=== PATIENT | male | born 1960 | race Caucasian/White ===

== ENCOUNTER 2019-03-21 10:06 | Inpatient (IN) | payer MEDICARE, MEDICAID ==
[~2019-03-21] VITALS: Ht 193 cm; Wt 83.9 kg
[2019-03-21] MEDS ORDERED: DIPHENHYDRAMINE 50MG/ML VIAL IM ONE (11:15)
[2019-03-21] MEDS ORDERED: LORAZEPAM 2MG/ML CPJ IM ONE (11:15)
[2019-03-21] MEDS ORDERED: CLINDAMYCIN 600 MG in DEXTROSE 5% WATER 50 ML IV ONE (11:15)
[2019-03-21] MEDS ORDERED: HALOPERIDOL LACTATE 5MG/ML VIAL IM ONE ×2 (11:15→14:00)
[2019-03-21] MEDS ORDERED: SODIUM CHLORIDE 0.9% 1000ML BAG (SEPSIS BOLUS) IV ONE (11:15)
[2019-03-21] MEDS ORDERED: LORAZEPAM 2MG/ML CPJ IV ONE (14:00)
[2019-03-21] MEDS ORDERED: CLINDAMYCIN 600MG PREMIX 50 ML IV SCH ×2 (14:00)
[2019-03-21 19:08] LABS: BASOPHILS % 0.6 % (0.0-2.0); EOSINOPHILS % 2.3 % (0.0-5.0); HEMATOCRIT. 33.7 % (42.0-52.0); HEMOGLOBIN. 11.2 g/dL (14.0-18.0); LYMPHOCYTES % 14.4 % (20.0-50.0); MEAN CORPUSCULAR HEMOGLOBIN 29.7 pg (28.0-32.0); MEAN CORPUSCULAR VOLUME 89.4 fL (80.0-94.0); MEAN PLATELET VOLUME 7.6 fl (7.4-10.4); NEUTROPHILS % 75.7 % (40.0-76.0); PLATELET 335 x1000/uL (130-400); RED BLOOD CELL COUNT 3.77 mill/uL (4.7-6.1); RED CELL DISTRIBUTION WIDTH 13.5 % (11.6-14.6)
[2019-03-21 19:13] LABS: CHLORIDE 104 mEq/L (98-107)
[2019-03-21 19:18] LABS: ETHANOL BLOOD < 10 mg/dL
[2019-03-21] MEDS ORDERED: CLINDAMYCIN 600 MG in DEXTROSE 5% WATER 50 ML IV SCH (22:00)
[2019-03-22] MEDS ORDERED: CLINDAMYCIN 600MG PREMIX 50 ML IV SCH (07:00)
[2019-03-22] MEDS ORDERED: LORAZEPAM 2MG/ML CPJ IM ONE (08:00)
[2019-03-22] MEDS ORDERED: BENZTROPINE MESYLATE 1MG TABLET PO ONE (13:00)
[2019-03-22] MEDS ORDERED: LORAZEPAM 1MG TABLET PO ONE (13:00)
[2019-03-22] MEDS ORDERED: HALOPERIDOL 5MG TABLET PO ONE ×2 (13:00→21:00)
[2019-03-23] MEDS: CLINDAMYCIN HCL 150MG CAPSULE PO SCH ×3 (02:00→20:00)
[2019-03-23] MEDS ORDERED: HALOPERIDOL 5MG TABLET PO ONE ×2 (05:30→22:30)
[2019-03-23] MEDS ORDERED: LORAZEPAM 1MG TABLET PO ONE ×2 (06:45→20:00)
[2019-03-23] MEDS: BENZTROPINE MESYLATE 1MG TABLET PO SCH (06:45)
[2019-03-23] MEDS ORDERED: CLINDAMYCIN HCL 150MG CAPSULE PO SCH (08:05)
[2019-03-23 14:33] LABS: *AMPHETAMINES SCREEN URINE NEGATIVE (NEGATIVE); *BARBITURATES SCREEN URINE NEGATIVE (NEGATIVE); *BENZODIAZEPINES SCREEN URINE NEGATIVE (NEGATIVE); *COCAINE SCREEN URINE NEGATIVE (NEGATIVE)
[2019-03-23 14:34] LABS: CANNABINOID URINE SCREEN NEGATIVE (NEGATIVE); METHADONE URINE SCREEN NEGATIVE (NEGATIVE); OPIATES URINE SCREEN NEGATIVE (NEGATIVE); PHENCYCLIDINE URINE SCREEN NEGATIVE (NEGATIVE)
[2019-03-23] MEDS ORDERED: IBUPROFEN 600MG TABLET PO ONE (22:45)
[2019-03-24] MEDS: CLINDAMYCIN HCL 150MG CAPSULE PO SCH ×2 (08:49→18:51)
[2019-03-24] MEDS: BENZTROPINE MESYLATE 1MG TABLET PO SCH (08:49)
[2019-03-24 18:05] LABS: EOSINOPHILS % 2.9 % (0.0-5.0); HEMATOCRIT. 39.4 % (42.0-52.0); HEMOGLOBIN. 13.4 g/dL (14.0-18.0); LYMPHOCYTES % 22.4 % (20.0-50.0); MEAN CORPUSCULAR HEMOGLOBIN 30.2 pg (28.0-32.0); MEAN CORPUSCULAR VOLUME 88.9 fL (80.0-94.0); MEAN PLATELET VOLUME 7.8 fl (7.4-10.4); MONOCYTES % 8.2 % (2.0-8.0); NEUTROPHILS % 65.5 % (40.0-76.0); PLATELET 510 x1000/uL (130-400); RED BLOOD CELL COUNT 4.43 mill/uL (4.7-6.1); RED CELL DISTRIBUTION WIDTH 13.7 % (11.6-14.6)
[2019-03-24 18:11] LABS: CHLORIDE 100 mEq/L (98-107)
[2019-03-24 18:12] LABS: PROTHROMBIN TIME 10.7 sec (9.6-11.0)
[2019-03-24] MEDS ORDERED: MAGNESIUM/ALUMINUM HYDROXIDE/SIMETHICONE 30ML UDC PO PRN (21:30)
[2019-03-24] MEDS ORDERED: OLANZAPINE 5MG TABLET PO SCH (21:30)
[2019-03-24] MEDS ORDERED: DOCUSATE SODIUM 100MG CAPSULE PO PRN (21:30)
[2019-03-24] MEDS ORDERED: NA PHOS,M-B/NA PHOS,DI-BA ENEMA 118ML PR PRN (21:30)
[2019-03-24] MEDS ORDERED: ACETAMINOPHEN 650MG/20.3ML UDC GT PRN (21:30)
[2019-03-24] MEDS ORDERED: ONDANSETRON HCL 4MG/2ML INJ IV PRN (21:30)
[2019-03-24] MEDS ORDERED: CLONIDINE 0.1MG TABLET PO PRN (21:30)
[2019-03-24] MEDS ORDERED: IPRATROPIUM/ALBUTEROL 0.5-3(2.5)MG/3ML NEB HHN PRN (21:30)
[2019-03-24] MEDS ORDERED: GUAIFENESIN 200MG/10ML SUGAR FREE UDC PO PRN (21:30)
[2019-03-24] MEDS ORDERED: DIPHENHYDRAMINE 50MG/ML VIAL IV PRN (21:30)
[2019-03-24] MEDS ORDERED: ACETAMINOPHEN 650MG SUPP PR PRN (21:30)
[2019-03-24] MEDS: OLANZAPINE 5MG TABLET PO SCH (22:35)
[2019-03-24] MEDS: HALOPERIDOL LACTATE 5MG/ML VIAL IM SCH (23:00)
[2019-03-24] MEDS ORDERED: BENZTROPINE MESYLATE 1MG/1ML 2ML AMP IM SCH (23:00)
[2019-03-24] MEDS: LORAZEPAM 2MG/ML CPJ IM PRN (23:25)
[2019-03-25] MEDS: LORAZEPAM 2MG/ML CPJ IM PRN ×2 (03:40→08:38)
[2019-03-25 04:58] LABS: BASOPHILS % 0.8 % (0.0-2.0); HEMATOCRIT. 37.8 % (42.0-52.0); HEMOGLOBIN. 12.6 g/dL (14.0-18.0); LYMPHOCYTES % 23.8 % (20.0-50.0); MEAN CORPUSCULAR HEMOGLOBIN 29.4 pg (28.0-32.0); MEAN CORPUSCULAR VOLUME 88.1 fL (80.0-94.0); MEAN PLATELET VOLUME 7.5 fl (7.4-10.4); MONOCYTES % 8.2 % (2.0-8.0); NEUTROPHILS % 63.2 % (40.0-76.0); PLATELET 399 x1000/uL (130-400); RED BLOOD CELL COUNT 4.29 mill/uL (4.7-6.1); RED CELL DISTRIBUTION WIDTH 13.4 % (11.6-14.6)
[2019-03-25 05:06] LABS: CHLORIDE 105 mEq/L (98-107)
[2019-03-25 06:02] LABS: LDL CHOLESTEROL 56 mg/dL (5-100)
[2019-03-25 06:04] LABS: HDL CHOLESTEROL 33 mg/dL (40-59)
[2019-03-25] MEDS: CEPHALEXIN 250MG CAPSULE PO SCH ×3 (07:14→18:22)
[2019-03-25] MEDS: HALOPERIDOL LACTATE 5MG/ML VIAL IM SCH (08:43)
[2019-03-25] MEDS ORDERED: AMLODIPINE 10MG TABLET PO SCH (09:00)
[2019-03-25 10:00] VITALS: BP 114/71
[2019-03-25 12:00] VITALS: BP 107/71
[2019-03-25] MEDS: OLANZAPINE 5MG TABLET PO SCH ×2 (12:38→23:20)
[2019-03-25] MEDS: ENOXAPARIN 40MG/0.4ML SYR SUBCUT SCH (12:38)
[2019-03-25] MEDS: SODIUM CHLORIDE 0.9% INJ 3ML FLUSH IVF SCH ×2 (12:43→23:21)
[2019-03-25 16:00] VITALS: BP 115/82
[2019-03-25] MEDS: HALOPERIDOL LACTATE 5MG/ML VIAL IM PRN (16:34)
[2019-03-25] MEDS: SODIUM HYPOCHLORITE (0.25%) 480ML SOLUTION (HALF STRENGTH) TOP SCH (16:39)
[2019-03-25] MEDS ORDERED: SILVER SULFADIAZINE 1% CREAM 50GM TOP SCH (17:00)
[2019-03-25 20:00] VITALS: BP 114/69
[2019-03-26] VITALS: BP 119/60
[2019-03-26] MEDS: CEPHALEXIN 250MG CAPSULE PO SCH ×4 (01:15→18:17)
[2019-03-26 04:00] VITALS: BP 143/71
[2019-03-26] MEDS: SODIUM CHLORIDE 0.9% INJ 3ML FLUSH IVF SCH ×3 (06:00→21:59)
[2019-03-26 08:00] VITALS: BP 112/65
[2019-03-26] MEDS: SODIUM HYPOCHLORITE (0.25%) 480ML SOLUTION (HALF STRENGTH) TOP SCH (09:19)
[2019-03-26] MEDS: OLANZAPINE 5MG TABLET PO SCH ×2 (09:19→22:24)
[2019-03-26] MEDS: ENOXAPARIN 40MG/0.4ML SYR SUBCUT SCH (11:15)
[2019-03-26 12:00] VITALS: BP 108/64
[2019-03-26 16:00] VITALS: BP 120/71
[2019-03-26 20:00] VITALS: BP 98/57
[2019-03-27] VITALS: BP 111/72
[2019-03-27] MEDS: CEPHALEXIN 250MG CAPSULE PO SCH ×4 (00:39→22:03)
[2019-03-27 04:07] VITALS: BP 115/66
[2019-03-27] MEDS: SODIUM CHLORIDE 0.9% INJ 3ML FLUSH IVF SCH ×3 (05:56→22:04)
[2019-03-27 08:00] VITALS: BP 115/73
[2019-03-27] MEDS ORDERED: MAGNESIUM/ALUMINUM HYDROXIDE/SIMETHICONE 30ML UDC PO PRN (08:45)
[2019-03-27] MEDS: OLANZAPINE 10MG TABLET PO SCH ×2 (09:07→22:03)
[2019-03-27] MEDS: SODIUM HYPOCHLORITE (0.25%) 480ML SOLUTION (HALF STRENGTH) TOP SCH (09:08)
[2019-03-27 12:00] VITALS: BP 106/54
[2019-03-27] MEDS: ENOXAPARIN 40MG/0.4ML SYR SUBCUT SCH (12:00)
[2019-03-27] MEDS: HALOPERIDOL LACTATE 5MG/ML VIAL IM PRN (13:42)
[2019-03-27 16:00] VITALS: BP 106/61
[2019-03-27 20:00] VITALS: BP 111/77
[2019-03-27] MEDS: LORAZEPAM 2MG/ML CPJ IM PRN (22:08)
[2019-03-28] MEDS: CEPHALEXIN 250MG CAPSULE PO SCH ×4 (01:15→18:18)
[2019-03-28] MEDS: SODIUM CHLORIDE 0.9% INJ 3ML FLUSH IVF SCH ×3 (06:50→22:27)
[2019-03-28 08:00] VITALS: BP 110/70
[2019-03-28] MEDS: OLANZAPINE 10MG TABLET PO SCH ×2 (08:01→22:27)
[2019-03-28] MEDS: SODIUM HYPOCHLORITE (0.25%) 480ML SOLUTION (HALF STRENGTH) TOP SCH (08:03)
[2019-03-28] MEDS: HALOPERIDOL LACTATE 5MG/ML VIAL IM PRN (10:03)
[2019-03-28] MEDS: ENOXAPARIN 40MG/0.4ML SYR SUBCUT SCH (12:00)
[2019-03-28 16:00] VITALS: BP 116/72
[2019-03-28 20:00] VITALS: BP 129/78
[2019-03-28] MEDS ORDERED: LORAZEPAM 1MG TABLET PO PRN (21:45)
[2019-03-29] VITALS: BP 116/86
[2019-03-29] MEDS: CEPHALEXIN 250MG CAPSULE PO SCH ×4 (00:57→20:38)
[2019-03-29 04:00] VITALS: BP 117/80
[2019-03-29] MEDS: SODIUM CHLORIDE 0.9% INJ 3ML FLUSH IVF SCH ×3 (06:33→20:40)
[2019-03-29 08:00] VITALS: BP 104/71
[2019-03-29] MEDS: ENOXAPARIN 40MG/0.4ML SYR SUBCUT SCH (10:26)
[2019-03-29] MEDS: SODIUM HYPOCHLORITE (0.25%) 480ML SOLUTION (HALF STRENGTH) TOP SCH (10:28)
[2019-03-29] MEDS: OLANZAPINE 10MG TABLET PO SCH (10:28)
[2019-03-29] MEDS ORDERED: BENZTROPINE MESYLATE 1MG TABLET PO NR (11:30)
[2019-03-29 12:00] VITALS: BP 121/76
[2019-03-29] MEDS: LORAZEPAM 0.5MG TABLET PO SCH ×2 (12:06→17:00)
[2019-03-29] MEDS: HALOPERIDOL 5MG TABLET PO SCH ×2 (12:06→16:10)
[2019-03-29] MEDS ORDERED: LORAZEPAM 2MG/ML CPJ IV PRN (16:00)
[2019-03-29] MEDS: BENZTROPINE MESYLATE 2MG TABLET PO SCH (16:10)
[2019-03-29] MEDS ORDERED: BENZTROPINE MESYLATE 1MG TABLET PO SCH (17:00)
[2019-03-29 20:00] VITALS: BP 100/58
[2019-03-30] VITALS: BP 114/71
[2019-03-30] MEDS: CEPHALEXIN 250MG CAPSULE PO SCH ×4 (01:44→19:15)
[2019-03-30 04:00] VITALS: BP 110/63
[2019-03-30] MEDS: SODIUM CHLORIDE 0.9% INJ 3ML FLUSH IVF SCH ×3 (06:15→21:28)
[2019-03-30 08:00] VITALS: BP 110/74
[2019-03-30] MEDS: LORAZEPAM 0.5MG TABLET PO SCH ×2 (08:39→17:57)
[2019-03-30] MEDS: HALOPERIDOL 5MG TABLET PO SCH ×2 (08:40→17:58)
[2019-03-30] MEDS: BENZTROPINE MESYLATE 2MG TABLET PO SCH ×2 (08:40→17:59)
[2019-03-30] MEDS: SODIUM HYPOCHLORITE (0.25%) 480ML SOLUTION (HALF STRENGTH) TOP SCH (08:40)
[2019-03-30] MEDS: ENOXAPARIN 40MG/0.4ML SYR SUBCUT SCH (12:00)
[2019-03-30 16:00] VITALS: BP 110/70
[2019-03-30 20:00] VITALS: BP 121/64
[2019-03-31] VITALS: BP 110/63
[2019-03-31] MEDS: CEPHALEXIN 250MG CAPSULE PO SCH ×4 (01:12→17:48)
[2019-03-31 04:00] VITALS: BP 124/61
[2019-03-31] MEDS: SODIUM CHLORIDE 0.9% INJ 3ML FLUSH IVF SCH ×3 (06:15→22:00)
[2019-03-31 08:00] VITALS: BP 129/78
[2019-03-31] MEDS: LORAZEPAM 0.5MG TABLET PO SCH ×2 (08:05→17:48)
[2019-03-31] MEDS: HALOPERIDOL 5MG TABLET PO SCH ×2 (08:05→17:48)
[2019-03-31] MEDS: SODIUM HYPOCHLORITE (0.25%) 480ML SOLUTION (HALF STRENGTH) TOP SCH (08:05)
[2019-03-31] MEDS: BENZTROPINE MESYLATE 2MG TABLET PO SCH ×2 (08:05→17:48)
[2019-03-31] MEDS: ENOXAPARIN 40MG/0.4ML SYR SUBCUT SCH (12:00)
[2019-03-31 16:00] VITALS: BP 107/69
[2019-03-31 20:00] VITALS: BP 129/71
[2019-03-31 23:43] VITALS: BP 106/64
[2019-04-01] MEDS: CEPHALEXIN 250MG CAPSULE PO SCH ×2 (01:00→06:17)
[2019-04-01 04:00] VITALS: BP 123/71
[2019-04-01] MEDS: SODIUM CHLORIDE 0.9% INJ 3ML FLUSH IVF SCH ×3 (06:18→20:26)
[2019-04-01 08:00] VITALS: BP 101/68
[2019-04-01] MEDS: HALOPERIDOL 5MG TABLET PO SCH ×2 (08:16→16:57)
[2019-04-01] MEDS: BENZTROPINE MESYLATE 2MG TABLET PO SCH ×2 (08:17→16:57)
[2019-04-01] MEDS: LORAZEPAM 0.5MG TABLET PO SCH ×2 (08:19→16:57)
[2019-04-01] MEDS: SODIUM HYPOCHLORITE (0.25%) 480ML SOLUTION (HALF STRENGTH) TOP SCH (08:22)
[2019-04-01 12:00] VITALS: BP 107/62
[2019-04-01] MEDS: ENOXAPARIN 40MG/0.4ML SYR SUBCUT SCH (12:00)
[2019-04-01 16:00] VITALS: BP 105/65
[2019-04-01 20:00] VITALS: BP 106/65
[2019-04-02] VITALS: BP 101/58
[2019-04-02 04:00] VITALS: BP 103/61
[2019-04-02] MEDS: SODIUM CHLORIDE 0.9% INJ 3ML FLUSH IVF SCH ×3 (05:21→21:04)
[2019-04-02 08:00] VITALS: BP 114/80
[2019-04-02] MEDS: HALOPERIDOL 5MG TABLET PO SCH ×2 (08:47→18:37)
[2019-04-02] MEDS: LORAZEPAM 0.5MG TABLET PO SCH ×2 (08:47→18:37)
[2019-04-02] MEDS: DIVALPROEX SODIUM 500MG ER TABLET PO SCH ×3 (08:47→18:37)
[2019-04-02] MEDS: BENZTROPINE MESYLATE 2MG TABLET PO SCH ×2 (08:47→18:37)
[2019-04-02] MEDS: SODIUM HYPOCHLORITE (0.25%) 480ML SOLUTION (HALF STRENGTH) TOP SCH (08:48)
[2019-04-02 10:36] LABS: BASOPHILS % 0.6 % (0.0-2.0); HEMOGLOBIN. 12.8 g/dL (14.0-18.0); LYMPHOCYTES % 24.1 % (20.0-50.0); MEAN CORPUSCULAR HEMOGLOBIN 29.5 pg (28.0-32.0); MEAN CORPUSCULAR VOLUME 87.7 fL (80.0-94.0); MEAN PLATELET VOLUME 8.4 fl (7.4-10.4); MONOCYTES % 5.8 % (2.0-8.0); NEUTROPHILS % 63.5 % (40.0-76.0); PLATELET 317 x1000/uL (130-400); RED BLOOD CELL COUNT 4.34 mill/uL (4.7-6.1)
[2019-04-02 10:44] LABS: CHLORIDE 102 mEq/L (98-107)
[2019-04-02 12:00] VITALS: BP 106/60
[2019-04-02] MEDS: ENOXAPARIN 40MG/0.4ML SYR SUBCUT SCH (12:07)
[2019-04-02 16:00] VITALS: BP 124/61
[2019-04-02 20:00] VITALS: BP 111/67
[2019-04-03] VITALS: BP 111/64
[2019-04-03 04:00] VITALS: BP 114/74
[2019-04-03] MEDS: SODIUM CHLORIDE 0.9% INJ 3ML FLUSH IVF SCH ×3 (05:24→21:48)
[2019-04-03 08:00] VITALS: BP 100/64
[2019-04-03] MEDS: BENZTROPINE MESYLATE 2MG TABLET PO SCH ×2 (08:14→18:03)
[2019-04-03] MEDS: HALOPERIDOL 5MG TABLET PO SCH ×2 (08:14→18:03)
[2019-04-03] MEDS: DIVALPROEX SODIUM 500MG ER TABLET PO SCH ×3 (08:14→18:03)
[2019-04-03] MEDS: LORAZEPAM 0.5MG TABLET PO SCH (08:14)
[2019-04-03] MEDS: SODIUM HYPOCHLORITE (0.25%) 480ML SOLUTION (HALF STRENGTH) TOP SCH (08:15)
[2019-04-03 12:19] VITALS: BP 110/72
[2019-04-03 16:48] VITALS: BP 133/83
[2019-04-03 20:00] VITALS: BP 98/68
[2019-04-04] VITALS: BP 107/62
[2019-04-04 04:00] VITALS: BP 98/61
[2019-04-04] MEDS: SODIUM CHLORIDE 0.9% INJ 3ML FLUSH IVF SCH ×3 (06:37→21:17)
[2019-04-04] MEDS ORDERED: DIVALPROEX SODIUM 250MG DR TABLET PO SCH (07:40)
[2019-04-04 08:00] VITALS: BP_SYST 100; BP_SYST 99; BP_DIAS 56; BP_DIAS 62
[2019-04-04] MEDS: HALOPERIDOL 5MG TABLET PO SCH ×2 (09:25→17:12)
[2019-04-04] MEDS: BENZTROPINE MESYLATE 2MG TABLET PO SCH ×2 (09:27→18:27)
[2019-04-04] MEDS: DIVALPROEX SODIUM 250MG DR TABLET PO SCH ×3 (09:32→17:12)
[2019-04-04] MEDS: SODIUM HYPOCHLORITE (0.25%) 480ML SOLUTION (HALF STRENGTH) TOP SCH (09:35)
[2019-04-04 20:00] VITALS: BP 100/67
[2019-04-05] VITALS: BP 118/77
[2019-04-05 04:00] VITALS: BP 112/70
[2019-04-05] MEDS: SODIUM CHLORIDE 0.9% INJ 3ML FLUSH IVF SCH ×2 (05:40→13:59)
[2019-04-05 08:00] VITALS: BP 113/76
[2019-04-05] MEDS: HALOPERIDOL 5MG TABLET PO SCH ×2 (08:22→17:30)
[2019-04-05] MEDS: BENZTROPINE MESYLATE 2MG TABLET PO SCH ×2 (08:22→17:33)
[2019-04-05] MEDS: DIVALPROEX SODIUM 250MG DR TABLET PO SCH ×3 (08:23→17:33)
[2019-04-05] MEDS: SODIUM HYPOCHLORITE (0.25%) 480ML SOLUTION (HALF STRENGTH) TOP SCH (09:00)
[2019-04-05 12:00] VITALS: BP 102/77
[2019-04-05 16:00] VITALS: BP 97/61
[2019-04-05 20:00] VITALS: BP 106/62
[2019-04-06] VITALS: BP 104/68
[2019-04-06 04:00] VITALS: BP 103/71
[2019-04-06] MEDS: SODIUM CHLORIDE 0.9% INJ 3ML FLUSH IVF SCH ×2 (06:35→13:28)
[2019-04-06 08:00] VITALS: BP 111/67
[2019-04-06] MEDS: HALOPERIDOL 5MG TABLET PO SCH ×2 (08:30→17:32)
[2019-04-06] MEDS: BENZTROPINE MESYLATE 2MG TABLET PO SCH ×2 (08:30→17:32)
[2019-04-06] MEDS: ASCORBIC ACID 500 MG TABLET PO SCH (08:31)
[2019-04-06] MEDS: DIVALPROEX SODIUM 250MG DR TABLET PO SCH ×3 (08:31→17:32)
[2019-04-06] MEDS: ZINC SULFATE 220 MG ( 50 ) CAPSULE PO SCH (08:32)
[2019-04-06] MEDS: SODIUM HYPOCHLORITE (0.25%) 480ML SOLUTION (HALF STRENGTH) TOP SCH (08:37)
[2019-04-06 12:00] VITALS: BP 115/58
[2019-04-06 16:00] VITALS: BP 105/66
[2019-04-06 20:00] VITALS: BP 103/65
[2019-04-07] VITALS: BP 112/69
[2019-04-07 04:00] VITALS: BP 108/71
[2019-04-07] MEDS: SODIUM CHLORIDE 0.9% INJ 3ML FLUSH IVF SCH ×2 (06:20→14:37)
[2019-04-07 08:00] VITALS: BP 98/55
[2019-04-07] MEDS: BENZTROPINE MESYLATE 2MG TABLET PO SCH ×2 (08:30→16:45)
[2019-04-07] MEDS: SODIUM HYPOCHLORITE (0.25%) 480ML SOLUTION (HALF STRENGTH) TOP SCH (08:30)
[2019-04-07] MEDS: HALOPERIDOL 5MG TABLET PO SCH ×2 (08:30→16:45)
[2019-04-07] MEDS: DIVALPROEX SODIUM 250MG DR TABLET PO SCH ×3 (08:30→16:45)
[2019-04-07] MEDS: ZINC SULFATE 220 MG ( 50 ) CAPSULE PO SCH (08:30)
[2019-04-07] MEDS: ASCORBIC ACID 500 MG TABLET PO SCH (08:30)
[2019-04-07 14:15] VITALS: BP 98/55
[2019-04-07 16:00] VITALS: BP 101/65
== END 2019-04-07 20:27 | DRG 602 ==
LOC: EDBD 10:33 → ER 10:33 → 8WST 03-24 10:00 → ENRESERV 03-25 08:39 → 6EST 04-04 11:50
PROVIDERS: ADMIT Family Medicine; ATTEND Family Medicine
DX: L03.116 Cellulitis of left lower limb (principal); E43 Unspecified severe protein-calorie malnutrition; E87.0 Hyperosmolality and hypernatremia; L97.929 Non-pressure chronic ulcer of unspecified part of left lower leg with unspecified severity; E87.1 Hypo-osmolality and hyponatremia; R45.1 Restlessness and agitation; R26.9 Unspecified abnormalities of gait and mobility; F20.9 Schizophrenia, unspecified; Z59.0 Homelessness; Z68.22 Body mass index [BMI] 22.0-22.9, adult
CPT/HCPCS: 36415; 73560; 80061; 80165; 80307; 80320; 80329; 82140; 83605; 84145; 84484; 87070; 87077; 87186; 93005; 96365; 96366; 96367; 96372; 96375; 99285; J0515; J1200; J1630; J1650; J2060; J3490; J7030; J7060; G0480